=== PATIENT | female | born 1985 | race Caucasian/White ===

== ENCOUNTER 2025-01-05 17:17 | Emergency (ER) | payer OTHER, SELFPAY ==
[2025-01-05 17:21] VITALS: BMI 33.6
--- NOTE | 2025-01-05 17:38 | DI.RAD.S_ITS ---
PROCEDURE: XR CHEST 1V
--- NOTE | 2025-01-05 17:40 | EKG_ITS ---
[facility]
[2025-01-05 17:46] LABS: Add Manual Diff / Slide Review NO; Hematocrit 38.8 % (36-46); Hemoglobin 13.3 g/dL (12.0-16.0); Lymphocytes Absolute Auto 2900 /uL (1100-4500); Mean Corpuscular HGB Conc 34.3 % (30-36); Mean Corpuscular Hemoglobin 28.8 PG (26-34); Mean Corpuscular Volume 84.0 fL (80-100); Platelet Count 318 X10^3/uL (150-400)
[2025-01-05 17:55] LABS: Base Excess VBG -1.8 mmol/L (0-4); HCO3 VBG 24 mmol/L (24-28); Oxygen Saturation VBG 69 % (70-75); PCO2 VBG 42.1 mmHg (45-50); PO2 VBG 37 mmHg (35-45); Total CO2 VBG 23 mmol/L (24-29); pH VBG 7.36 (7.33-7.43)
[2025-01-05 18:04] LABS: Alanine Aminotransferase 17 IU/L (<35); Albumin 4.5 g/dL (3.5-5.0); Albumin Globulin Ratio 1.4 (1.0-2.8); Alkaline Phosphatase 84 U/L (38-126); Blood Urea Nitrogen 16 mg/dL (7-17); Calcium 9.0 mg/dL (8.4-10.2); Carbon Dioxide 21 mmol/L (22-32); Chloride 100 mmol/L (98-107); Estimated Glomerular Filt Rate > 60 mL/min (>60); Globulin 3.3 g/dL (1.7-4.1); Glucose 417 mg/dL (70-99); HEMOLYSIS < 15 (0-50); Lipase 111 U/L (23-300); Magnesium 1.4 mg/dL (1.6-2.3); Potassium 4.2 mmol/L (3.4-5.1); Sodium 133 mmol/L (137-145); Total Protein 7.8 g/dL (6.3-8.2)
[2025-01-05 18:05] LABS: Lactate (Lactic Acid) 1.5 mmol/L (0.7-2.1)
--- NOTE | 2025-01-05 18:05 | ED_ITS ---
HPI - General Adult
--- NOTE | 2025-01-05 18:05 | ED.GENADULT ---
HPI - General Adult General Chief complaint: Diabetic Problem Stated complaint: diabetic, high blood sugar, vomiting Time Seen by Provider: 01/05/25 17:38 Source: patient Mode of arrival: Ambulatory History of Present Illness HPI narrative: Patient is a insulin-dependent diabetic presenting with nausea vomiting for the last 20 minutes. She did take her sugar at 4:30pm and it was 383 she gave herself 5 units of NovoLog. She has been out of her Lantus since December 30 she is supposed to take 25 units of Lantus daily. However due to an insurance problem she has not been able to take it. She denies significant abdominal pain. She had a little bit of chest pain. She does not feel like she is in DKA. Related Data Previous Rx's ?Medication ?Instructions ?Recorded insulin glargine 100 unit/mL (3 25 unit (0.25 mL) SUBCUT QPM #15 mL 01/05/25 mL) subcutaneous pen (Lantus Solostar U-100 Insulin) Allergies Allergy/AdvReac Type Severity Reaction Status Date / Time No Known Drug Allergies Allergy Verified 01/05/25 17:21 Patient History Social History Smoking Status: Never smoker Smoking Status: Never smoker Exam Initial Vital Signs Initial Vital Signs: Vital Signs Pulse Rate 82 01/05/25 18:26 Respiratory Rate 14 01/05/25 18:26 Blood Pressure 152/86 H 01/05/25 18:26 Pulse Oximetry 100 01/05/25 18:26 GENERAL: Alert well-appearing 39-year-old female and in no acute distress. HEENT: Head atraumatic,EOMI, pupils reactive, face symmetric, moist mucous membranes CARDIOVASCULAR: Regular rate and rhythm without murmurs, rubs or gallops. RESPIRATORY: Breath sounds equal bilaterally, no wheezes rales or rhonchi. ABDOMEN: Soft, nontender. Normoactive bowel sounds all 4 quadrants. No guarding or rebound. EXTREMITIES: Normal range of motion, no clubbing or edema. Neurovascularly intact NEUROLOGICAL: Alert and oriented x4.Normal gait and speech. Cranial nerves II through XII grossly intact. SKIN: Warm, dry, no laceration, no petechiae, no rashes or lesions. Course Orders Ordered: ED Orders 01/05/25 17:35 Complete Blood Count AUTO DIFF Stat Comprehensive Metabolic Panel Stat Ketones (Beta-Hydroxybutyrate) Stat Lactate (Lactic Acid) Stat Lipase Stat Magnesium Stat Troponin I Stat 01/05/25 17:38 XR chest 1V Stat EKG-12 Lead Stat VBG [Venous Blood Gas] STAT 01/05/25 17:51 Venous Blood Gas Routine 01/05/25 18:55 Urine Microscopic Stat Discontinued Medications Sodium Chloride (Normal Saline 0.9%) 1,000 mls @ 1,000 mls/hr IV BOLUS ONE Stop: 01/05/25 19:21 Last Infusion: 01/05/25 19:23 Dose: Infused Documented By: Admin: 01/05/25 18:40 Dose: 1,000 mls/hr Documented By: HORACE Insulin Glargine (Insulin Glargine 100 Unit/Ml 3ml Pen) 25 unit SUBCUT NOW ONE Stop: 01/05/25 18:59 Last Admin: 01/05/25 19:03 Dose: 25 unit Documented By: HORACE Co-signed By: CADEN Insulin Human Regular (Insulin Regular 100 Unit/Ml 3 Ml Vial) 2.5 unit SUBCUT NOW ONE Stop: 01/05/25 19:06 Last Admin: 01/05/25 19:19 Dose: 2.5 unit Documented By: HORACE Co-signed By: CADEN Metoclopramide HCl (Metoclopramide 10 Mg/2 Ml Inj) 10 mg IV NOW ONE Stop: 01/05/25 18:43 Last Admin: 01/05/25 18:47 Dose: 10 mg Documented By: YINA Vital Signs Vital signs: Vital Signs - 8 hr 01/05/25 18:26 01/05/25 18:26 01/05/25 18:30 Pulse Rate 82 80 Respiratory Rate 14 14 Blood Pressure 152/86 H Pulse Oximetry 100 97 01/05/25 18:30 01/05/25 19:00 01/05/25 19:00 Pulse Rate 87 Respiratory Rate 20 Blood Pressure 133/77 125/59 L Pulse Oximetry 95 Medical Decision Making Lab Data 01/05/25 17:35 01/05/25 17:35 Labs: Lab Results 01/05/25 01/05/25 01/05/25 Range/Units 17:35 17:51 20:00 WBC 10.7 (4.5-11.0) X10^3/uL RBC 4.62 (4.0-5.2) X10^6/uL Hgb 13.3 (12.0-16.0) g/dL Hct 38.8 (36-46) % MCV 84.0 (80-100) fL MCH 28.8 (26-34) PG MCHC 34.3 (30-36) % RDW 13.4 (11.6-14.8) % Plt Count 318 (150-400) X10^3/uL Neut % (Auto) 67.6 (50-75) % Lymph % (Auto) 27.4 (25-40) % [place] % (Auto) 3.0 (3-14) % Eos % (Auto) 1.2 L (2-4) % Baso % (Auto) 0.8 (0-2) % Neut # (Auto) 7200 H (7059-8526) /uL Lymph # (Auto) 2900 (8936-6903) /uL [place] # (Auto) 300 (0-900) /uL Eos # (Auto) 100 (0-450) /uL Baso # (Auto) 100 (0-100) /uL VBG pH 7.36 (7.33-7.43) VBG pCO2 42.1 L (45-50) mmHg VBG pO2 37 (35-45) mmHg VBG HCO3 24 (24-28) mmol/L VBG Total CO2 23 L (24-29) mmol/L VBG O2 Saturation 69 L (70-75) % VBG Base Excess -1.8 L (0-4) mmol/L FiO2 % 21.0 % % Sodium 133 L (137-145) mmol/L Potassium 4.2 (3.4-5.1) mmol/L Chloride 100 (98-107) mmol/L Carbon Dioxide 21 L (22-32) mmol/L BUN 16 (7-17) mg/dL Creatinine 0.68 (0.52-1.04) mg/dL Estimated GFR > 60 (>60) mL/min BUN/Creatinine Ratio 23.5 H (6-22) Glucose 417 H (70-99) mg/dL POC Whole Bld Glucose 264 H (70-99) mg/dL Lactate 1.5 (0.7-2.1) mmol/L Calcium 9.0 (8.4-10.2) mg/dL Magnesium 1.4 L (1.6-2.3) mg/dL Total Bilirubin 0.5 (0.2-1.3) mg/dL AST 21 (14-36) IU/L ALT 17 (<35) IU/L Alkaline Phosphatase 84 (38-126) U/L Troponin I < 0.012 (0.01-0.034) ng/mL Total Protein 7.8 (6.3-8.2) g/dL Albumin 4.5 (3.5-5.0) g/dL Globulin 3.3 (1.7-4.1) g/dL Albumin/Globulin Ratio 1.4 (1.0-2.8) Lipase 111 (23-300) U/L Ketones 1.17 H (<0.27) mmol/L Point of Care Testing Test Results Negative Urine Dip Bedside Urine Glucose 1000 mg/dl Bedside Urine Bilirubin - Negative Bedside Urine Ketone +++ 80 Urine Specific [place] 1.015 Bedside Urine Occult Blood - Negative Bedside Urine pH 6.0 Bedside Urine Protein - Negative Bedside Urine Urobilinogen - Negative Bedside Urine Nitrite - Negative Bedside Urine Leukocytes - Negative Esterase Point of care testing: Point of Care Testing Test Results Negative Urine Dip Bedside Urine Glucose 1000 mg/dl Bedside Urine Bilirubin - Negative Bedside Urine Ketone +++ 80 Urine Specific [place] 1.015 Bedside Urine Occult Blood - Negative Bedside Urine pH 6.0 Bedside Urine Protein - Negative Bedside Urine Urobilinogen - Negative Bedside Urine Nitrite - Negative Bedside Urine Leukocytes - Negative Esterase ECG Data Interpretation: Sinus rhythm rate 91 OH interval 128 QRS [address] changes no T-wave inversions MDM Narrative Medical decision making narrative: [facility] CC: Abdominal pain nausea vomiting Complicating co-morbidities: Insulin-dependent diabetes out of landed Data collected from: Patient Medical records reviewed: None Differential considered: DKA, bowel obstruction, gastroparesis, acute coronary syndrome Exam documented above, pertinent findings include: Alert well-appearing 39-year-old female breath sounds are clear abdomen is soft and nontender Lab Test results independently reviewed as above. Pertinent findings: Glucose 417 anion gap 12 Ketones 1.17 Venous pH 7.36 CBC no leukocytosis no anemia CMP mild hyponatremia sodium 133 elevated hyperglycemia with a glucose of 117 Bilirubin liver enzymes within normal limits lipase 111 Troponin negative Independently reviewed EKG as above normal sinus rhythm rate 91 OH interval 128 QRS [address] changes no T-wave inversions Imaging studies independently reviewed: Chest x-ray no acute cardiopulmonary process Consultations: Treatments: IV fluids Reglan Lantus and NovoLog Re-evaluations: Abdomen reexamined remains soft and nontender. She is tolerating p.o. fluids overall feeling much better. Discussion: 39-year-old female with a history of insulin-dependent diabetes presenting today with nausea vomiting and elevated glucose. She has been out of her Lantus. She does not show any evidence that she is in DKA. She is tolerating p.o. fluids. Abdomen remained soft. She is given a new prescription for Lantus she has some NovoLog at home. She feels ready and able to go. No need for admission Discharge Plan Departure Patient Disposition: Home Clinical Impression: Diabetes mellitus Instructions: DI for Diabetes Type 1 -- Adult Activity Restrictions/Additional Instructions: *You have been diagnosed with hyperglycemia *What to do: At this time you do not have any evidence of DKA. Continue to eat and drink fluids as tolerated *Continue to take medications as directed Lantus 25 units at night Continue NovoLog on sliding scale *Follow up with your primary care provider in 2-3 days or call [phone] *Return to ER if you should have increasing vomiting abdominal or any new, worsening or concerning symptoms Prescriptions: New insulin glargine [Lantus Solostar U-100 Insulin] 100 unit/mL (3 mL) insulin pen 25 unit SUBCUT QPM Qty: 15 0RF Stand Alone Forms: Patient Portal/API
[2025-01-05 18:11] LABS: Ketones (Beta-Hydroxybutyrate) 1.17 mmol/L (<0.27)
[2025-01-05 18:18] LABS: Troponin I < 0.012 ng/mL (0.01-0.034)
[2025-01-05 18:26] VITALS: BP 152/86; PULSE 82; RESP 14; O2SAT 100
[2025-01-05 18:30] VITALS: BP 133/77; PULSE 80; RESP 14; O2SAT 97
[2025-01-05] MEDS: SODIUM CHLORIDE 0.9% 1,000 ML 1000 ML IV (18:40)
[2025-01-05] MEDS: METOCLOPRAMIDE 10 MG/2 ML INJ IV (18:47)
[2025-01-05 19:00] VITALS: BP 125/59; PULSE 87; RESP 20; O2SAT 95
[2025-01-05] MEDS: INSULIN GLARGINE 100 UNIT/ML 3ML PEN 25 UNIT SUBCUT (19:03)
[2025-01-05] MEDS: INSULIN REGULAR 100 UNIT/ML 3 ML VIAL SUBCUT (19:19)
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
== END 2025-01-05 20:20 | disposition home or self-care (01) ==
PROVIDERS: Emergency Provider Emergency Medicine
DX: E10.9 Type 1 diabetes mellitus without complications (principal); R11.2 Nausea with vomiting, unspecified; R07.9 Chest pain, unspecified; Z79.4 Long term (current) use of insulin
CPT/HCPCS: 71045; 80053; 81003; 81025; 82009; 82805; 82962; 83605; 83690; 83735; 84484; 85025; 93005; 96361; 96372; 96374; 99284; J2765; J7030